=== PATIENT | female | born 1980 | race Caucasian/White ===

== ENCOUNTER 2020-05-20 04:46 | Day surgery (SDC) | payer OTHER ==
[2020-05-19 08:59] VITALS: BMI 27.1
--- OUTSIDE RECORDS SUMMARY | 2020-05-20 04:48 | XMS ---
:1980 Author Organization [facility] Care Team Providers Name Role Phone ERA KHOURY Unavailable Unavailable Re-disclosure Warning The records that you are about to access may contain information from federally- assisted alcohol or drug abuse programs. If such information is present, then the following federally mandated warning applies: This information has been disclosed to you from records protected by federal confidentiality rules (42 CFR part 2). The federal rules prohibit you from making any further disclosure of this information unless further disclosure is expressly permitted by the written consent of the person to whom it pertains or as otherwise permitted by 42 CFR part 2. A general authorization for the release of medical or other information is NOT sufficient for this purpose. The Federal rules restrict any use of the information to criminally investigate or prosecute any alcohol or drug abuse patient.The records that you are about to access may contain highly sensitive health information, the redisclosure of which is protected by Article 27-F of the [facility] Public Health law. If you continue you may haveaccess to information: Regarding HIV / AIDS; Provided by facilities licensed or operated by the [facility] Office of Mental Health; or Provided by the [facility] Office for People With Developmental Disabilities. If such information is present, then the following [facility] mandated warning applies: This information has been disclosed to you from confidential records which are protected by state law. State law prohibits you from making any further disclosure of this information without the specific written consent of the person to whom it pertains, or as otherwise permitted by law. Any unauthorized further disclosure in violation of state law may result in a fine or half-way sentence or both. A general authorization for the release of medical or other information is NOT sufficient authorization for further disclosure. Allergies and Adverse Reactions Type Description Substance Reaction Status Data Source(s ) Food allergy No Known Food No Known Food [facility] [facility] Drug allergy No Known Allergies No Known [facility] Allerg[facility] Drug allergy No Known Drug No Known Drug [facility] Allergies Allerg[facility] Encounters Encounter Providers Location Date Indications Data Source(s ) Emergency Attender: KHOURY, 05/03/2019 VAGINAL PAIN [facility] DIAZINAdmitter: 08:54:00 PM [facility] re ERA KHOURY [facility] VAGINAL PAIN Insurance Providers Payer name Policy type Policy ID Covered Covered republican's Policy P daniel / Coverage republican ID relationship to [employer] Inf ormation type [employer]omeli MVP ESSENTIAL [id number] SP [id number] PLAN 3 4 Problems, Conditions, and Diagnoses Code Display Name Description Problem Type Effective Data Sour ce(s) Dates Z32.02 Encounter for ENCOUNTER FOR Diagnosis 05/03/2019 [facility] test, TEST, 08:54:00 PM [facility] result negative RESULT NEGATIVE [facility] Z88.8 Allergy status to ALLERGY STATUS TO Diagnosis 05/03/2019 [facility] other drugs, OTH 08:54:00 PM [facility] medicaments and DRUG/MEDS/BIOL [facility] biological SUBST STATUS substances status Z88.1 Allergy status to ALLERGY STATUS TO Diagnosis 05/03/2019 [facility] other antibiotic OTHER ANTIBIOTIC 08:54:00 PM [facility] agents status AGENTS STATUS [facility] Z87.442 Personal history PERSONAL HISTORY Diagnosis 05/03/2019 [facility]ol[facility] of urinary OF URINARY 08:54:00 PM [facility] calculi CALCULI [facility] on B96.20 Unspecified UNSP ESCHERICHIA Diagnosis 05/03/2019 [facility] Escherichia coli COLI THE CAUSE 08:54:00 PM [facility] [E. coli] as the OF DISEASES [facility] cause of diseases CLASSD ELSWHR classified elsewhere K76.0 Fatty (change of) FATTY (CHANGE OF) Diagnosis 05/03/2019 [facility] liver, not LIVER, NOT 08:54:00 PM [facility] elsewhere ELSEWHERE [facility] on classified CLASSIFIED N39.0 Urinary tract URINARY TRACT Diagnosis 05/03/2019 [facility] infection, site INFECTION, SITE 08:54:00 PM [facility] not specified NOT SPECIFIED [facility] R30.0 Dysuria DYSURIA Diagnosis 05/03/2019 [facility] 08:54:00 [facility] on Results ID Date Data Source [id number] 05/15/2020 01:50:00 PM EDT [facility] Name Value Range Interpretation Description Data Sup porting Code Source(s) Document(s ) SARS [facility] coronavirus 2 RNA This lab was ordered by [facility] and reported by [facility]. ID Date Data Source [id number] 05/07/2020 06:17:00 PM EDT [facility] Name Value Range Interpretation Description Data Sup porting Code Source(s) Document(s ) SARS [facility] coronavirus 2 RNA This lab was ordered by [facility] and reported by [facility]. Procedure
--- NOTE | 2020-05-20 10:32 | HP ---
History & Physical Update - History History: No Change - Physical Physical: No Change - Assessment Assessment: No Change - Plan Plan: No Change
--- NOTE | 2020-05-20 10:34 | OP ---
Operative Note - Note: Pre-Operative Diagnosis: GUANACO, cystocele Operation: suburethral sling and cystocele repair Findings: GUANACO and cystocele Implants: altis sling Post-Operative Diagnosis: Same as Pre-op Surgeon: Victorino Rubalcava Anesthesiologist/ALMOND PASTE MOLDER: Garrett Quiroz Anesthesia: General, Local Specimens Removed: portion of anterior vaginal wall Estimated Blood Loss (mls): 100 Drains & Tubes with Location: [address] Operative Report Dictated: Yes
[2020-05-20] MEDS ORDERED: VASOPRESSIN 20 UNITS/ML VIAL IV ONE (11:10)
[2020-05-20] MEDS ORDERED: MIDAZOLAM HCL 2 MG/2 ML SINGLE DOSE VIAL ONE (12:35)
[2020-05-20] MEDS ORDERED: PROPOFOL 20 ML ONE (12:35)
[2020-05-20] MEDS ORDERED: DEXAMETHASONE SOD PHOSPHATE 4 MG/1 ML VIAL ONE (12:35)
[2020-05-20] MEDS ORDERED: LIDOCAINE HCL/PF 2% SDV 5ML VIAL ONE (12:35)
[2020-05-20] MEDS ORDERED: ceFAZolin SODIUM 1 GM VIAL IVPB ONE (13:20)
[2020-05-20] MEDS ORDERED: ceFAZolin SODIUM 1 GM VIAL ONE (13:23)
[2020-05-20] MEDS ORDERED: LIDOCAINE 1%/EPI 1:100000 (50 ML MULTI DOSE VIAL) ONE (13:24)
[2020-05-20] MEDS ORDERED: LIDOCAINE 1%/EPI 1:100000 (20 ML MULTI DOSE VIAL) IJ ONE ×2 (13:31)
[2020-05-20] MEDS ORDERED: BACITRACIN 50,000 UNITS VIAL NR ONE (13:45)
[2020-05-20] MEDS ORDERED: BACITRACIN 15 GM TUBE TOPICAL OINTMENT ONE (13:47)
[2020-05-20] MEDS ORDERED: oxyCODONE HCL 5 MG TABLET PO PRN ×2 (15:46→20:30)
[2020-05-20] MEDS ORDERED: ONDANSETRON 4 MG/2 ML VIAL IVPUSH PRN (15:46)
[2020-05-20] MEDS ORDERED: oxyCODONE HCL 5 MG TABLET PO ONE (15:50)
[2020-05-20] MEDS ORDERED: oxyCODONE HCL 5 MG TABLET ONE ×2 (15:53→18:36)
[2020-05-20] MEDS: oxyCODONE HCL 5 MG TABLET PO PRN ×2 (15:55→18:45)
[2020-05-20] MEDS ORDERED: LACTATED RINGERS SOLUTION 1,000 ML IV SCH (16:00)
[2020-05-20] MEDS ORDERED: ACETAMINOPHEN 325 MG TABLET (FP) PO PRN (20:30)
[2020-05-21] MEDS: oxyCODONE HCL 5 MG TABLET PO PRN (04:21)
[2020-05-21 05:51] VITALS: BP 98/47; PULSE 57; TEMP 97.8
--- NOTE | 2020-05-22 19:10 | OP ---
DATE OF OPERATION: 05/20/2020 PREOPERATIVE DIAGNOSES: Mixed urinary incontinence and cystocele. POSTOPERATIVE DIAGNOSES: Mixed urinary incontinence and cystocele. PROCEDURE: Suburethral sling and cystocele repair. SURGEON: Victorino Miranda MD OTOLARYNGOLOGIST: None. ANESTHESIA: General via laryngeal mask. ANESTHESIOLOGIST: Garrett Quiroz MD SPECIMENS: Portion of anterior vaginal wall. CULTURES: None. DRAINS: A 16-Welsh Guerin catheter and vaginal packing. ESTIMATED BLOOD LOSS: 100 mL. COMPLICATIONS: None. DESCRIPTION OF PROCEDURE: Patient was brought to the operating room, placed on the operating table in supine position. After the administration of general anesthesia via laryngeal mask, intravenous antibiotics were administered. Sequential compression devices were placed. Patient was placed in the dorsal lithotomy position, and the vagina, perineum, buttocks, lower abdomen were prepped and draped in usual sterile manner. A 16-Welsh Guerin catheter was placed per urethra into the bladder, 10 mL placed in the balloon. Bladder was emptied. Weighted speculum was placed within the vagina. Approximately 20 mL of a 1:1 mixture of lidocaine with epinephrine 1:200,000 with normal saline half and half was injected into the anterior vaginal wall overlying the mid-urethra and carried down towards the cervix, overlying the cystocele, directed laterally as well. Hydrodissection was done. Now, an anterior vaginal wall midline incision was made overlying the mid-urethra, palpating the Guerin catheter balloon at the bladder neck. This was carried down past the bladder neck, down to the cystocele. Flaps were raised on each side using sharp and blunt dissection in the plane of the pubocervical fascia. This was dissected laterally towards the descending ramus and pubic bone on each side without passing through the endopelvic fascia. Now, using the helical needle, the Altace sling was placed through the left obturator foramen first, then through the right, and then, the tension, a suture was placed on the appropriate tension, and the tensioning suture was cut. A right angle clamp was able to go beneath the sling and the urethra. Now, several sutures of 0 Vicryl were placed to repair the cystocele with [place] tissue. Once the cystocele was repaired, the redundant anterior vaginal wall tissue was excised, sent to Pathology as specimen. Hemostasis was assured. The wound was irrigated with antibiotic solution. The wound was then closed in a running manner with 3-0 Vicryl suture. The vagina was packed with a betadine and bacitracin soaked Kerlix. Guerin catheter at the end of the case was draining clear yellow urine. She tolerated the procedure well, transferred to Recovery in stable condition. VICTORINO MIRANDA M.D. [id number]
--- NOTE | 2020-05-25 18:10 | PATH ---
Surgical Pathology Report Patient Name: KELSI VÁZQUEZ [facility]. Rec. #: [id number] /Age/Gender: 1980 (Age: 40) / F Account: [id number] Location: AMBULATORY SURG Taken: 05/20/2020 Received: 05/20/2020 Reported: 05/25/2020 Physicians: Victorino Rubalcava M.D. Specimen(s) Received PORTION OF ANTERIOR VAGINAL WALL Clinical History Mixed incontinence Final Diagnosis PORTION OF ANTERIOR VAGINAL WALL, CYSTOCELE REPAIR: VAGINAL SQUAMOUS MUCOSA WITH PATCHY MILD ACUTE AND CHRONIC INFLAMMATION, SPONGIOSIS, AND FOCAL PARAKERATOSIS. Electronically Signed Kelsi Garces M.D. Gross Description Received in formalin labeled "portion of anterior vaginal wall," is a 2.4 x 0.9 x 0.4 cm lay delaney, irregular, unoriented portion of soft tissue, consistent with a portion of vaginal wall. Weed Burner sections are submitted in one cassette. /05/24/2020 saudi/05/24/2020
== END 2020-05-21 10:25 | disposition home or self-care (01) ==
LOC: JASU-SURG 04:46 → JASUSAT 04:46 → J6S 19:54 → JASUSAT 05-21 10:25
PROVIDERS: ATTEND Urology
PROC: 0JQC0ZZ Repair Pelvic Region Subcutaneous Tissue and Fascia, Open Approach (ICD-10-PCS; principal; 2020-05-20 13:00)
PROC: 0TSD0ZZ Reposition Urethra, Open Approach (ICD-10-PCS; 2020-05-20 13:00)
DX: N39.46 Mixed incontinence (principal); N81.10 Cystocele, unspecified
CPT/HCPCS: 57240; 57288; C1771; 81025; 88302-TC; 94760

== ENCOUNTER 2020-05-27 14:59 | Emergency (ER) | payer OTHER ==
[2020-05-27 15:27] VITALS: BP 99/53; PULSE 61; TEMP 98.8; BMI 28.9
--- NOTE | 2020-05-27 16:15 | PDOC ---
Attending Attestation - Resident Resident Name: Diogo Cannon - ED Attending Attestation I have performed the following: I have examined & evaluated the patient, The case was reviewed & discussed with the resident, I agree w/resident's findings & plan, Exceptions are as noted - HPI HPI: 05/27/20 16:16 40 F with h/o suburethral sling and cystocele repair 1 week ago presenting to ED with lower abdominal pain. Pt states that she has had pain since the procedure, but it acutely worsened over the past day. She also notes a small amount of bleeding. Today, pt also notes that she feels "a piece of cloth" inside of her vagina when she wipes. Denies fevers but endorses chills. - Physicial Exam PE: 05/27/20 16:27 see resident exam - Medical Decision Making 05/27/20 16:27 40 F with lower abdominal pain s/p suburethral sling 1 week ago. Will evaluate for post-op infection. - Labs - CT pelvis w/ contrast Pt signed out to Dr. Guzman at 4:30pm, pending labs, CT, and re-evaluation Discharge - Discharge Information Problems reviewed: Yes Clinical Impression/Diagnosis: Postoperative pain UTI (urinary tract infection) Qualifiers: Urinary tract infection type: site unspecified Hematuria presence: with hematuria Qualified Code(s): N39.0 - Urinary tract infection, site not specified Condition: Stable Disposition: HOME - Additional Discharge Information Prescriptions: Sulfamethoxazole/Trimethoprim [Bactrim Ds -] 1 tab PO BID 7 Days #14 tablet - Follow up/Referral Referrals: Cielo Noel DO [Primary Care Provider] - - Patient Discharge Instructions Additional Instructions: La vieron en la power de emergencias por dolor plvico, la sensacin de que se estaba saliendo la "ifeanyi" y darby en la vagina y la orina. Hicimos un examen fsico, anlisis de laboratorio y tomografa computarizada de marie pelvis, que mostr que tiene opal infeccin del tracto urinario. No mostr que saliera ninguna ifeanyi, y no vimos que saliera ninguna ifeanyi cuando hicimos un examen plvico. Hablamos con marie cirujano, el Dr. Rubalcava, quien recomend cambiarlo a un antibitico diferente, llamado Bactrim. Tambin quiere verte en marie oficina el lunes, y es importante que hagas un seguimiento con l. Regrese a la power de em ergencias si tiene fiebre, dificultad para respirar, sangrado significativo o cualquier otro sntoma. You were seen in the ER for pelvic pain, the sensation that the "mesh" was coming out, and blood in your vagina and urine. We did a physical exam, labs, and CT scan of your pelvis, which showed that you have a urinary tract infection. It did not show any mesh coming out, and we did not see any mesh coming out when we did a pelvic exam. We spoke with your surgeon, Dr. Rubalcava, who recommended switching you to a different antibiotic, called Bactrim. He also wants to see you in his office on Sunday, and it is important that you follow up with him. Please return to the ER for fever, difficulty breathing, significant bleeding, or any other symptoms. - Post Discharge Activity
--- NOTE | 2020-05-27 16:36 | PDOC ---
History of Present Illness - General Chief Complaint: Pain Stated Complaint: SICK Time Seen by Provider: 05/27/20 15:37 - History of Present Illness Initial Comments: 05/27/20 16:13 40yo F with history of kidney stones who is post-op day 6 from a urethral sling and cystocele repair by Govind Rubalcava presents with lower abdominal/pelvic pain since the surgery but much worse this morning, as well as the sensation that the hard mesh is coming out. States the pain is much worse since this morning, not significantly relieved by her prescribed toradol. Has noticed some blood in her urine and vagina since the surgery, but no significant bleeding. No GI symptoms, no fever. LMP in August with filemaker developer workup for amenorrhea pending later this month. PMH/PSH: as above Meds: augmentin, toradol Allergies Allergy/AdvReac Type Severity Reaction Status Date / Time No Known Drug Allergies Allergy Unverified 05/20/20 13:34 SUN Allergy Itching Uncoded 05/19/20 09:01 ROS GENERAL/CONSTITUTIONAL: No fever or chills. No weakness. HEAD, EYES, EARS, NOSE AND THROAT: No change in vision. No ear pain or disc harge. No sore throat. CARDIOVASCULAR: No chest pain or shortness of breath RESPIRATORY: No cough, wheezing, or hemoptysis. GASTROINTESTINAL: No nausea, vomiting, diarrhea or constipation. GENITOURINARY: hematuria. No dysuria, frequency MUSCULOSKELETAL: No joint or muscle swelling or pain. No neck or back pain. SKIN: No rash NEUROLOGIC: No headache, vertigo, loss of consciousness, or change in strength/sensation. ENDOCRINE: No increased thirst. No abnormal weight change HEMATOLOGIC/LYMPHATIC: No anemia, easy bleeding, or history of blood clots. ALLERGIC/IMMUNOLOGIC: No hives or skin allergy. PE GENERAL: Awake, alert, and fully oriented, in no acute distress HEAD: No signs of trauma, normocephalic, atraumatic EYES: PERRLA, EOMI, sclera anicteric, conjunctiva clear ENT: Auricles normal inspection, hearing grossly normal, nares patent, oropharynx clear without exudates. Moist mucosa NECK: Normal ROM, supple, no lymphadenopathy, JVD, or masses LUNGS: No distress, speaks full sentences, clear to auscultation bilaterally HEART: Regular rate and rhythm, normal S1 and S2, no murmurs, rubs or gallops, peripheral pulses normal and equal bilaterally. ABDOMEN: Soft, diffuse tenderness, worse in the lower abdomen, no rebound tenderness EXTREMITIES : Normal inspection, Normal range of motion, no edema. No clubbing or cyanosis. NEUROLOGICAL: Cranial nerves II through XII grossly intact. Normal speech, normal gait, no focal sensorimotor deficits SKIN: Warm, Dry, normal turgor, no rashes or lesions noted Pelvic: small amount of blood in the vault. Suture line on anterior vaginal wall with granualtion tissue. No mesh visualized. No abdnormal discharge. MDM 40yo F with history of kidney stones who is post-op day 6 from a urethral sling and cystocele repair by Govind Rubalcava presents with lower abdominal/pelvic pain since the surgery but much worse this morning, the sensation that the hard mesh is coming out, and hematuria / blood in vagina. Exam notable for lower abdominal tenderness and scant blood in the vaginal vault and a surgical suture line without mesh visualized. Spoke with urologist Dr. Rubalcava who recommended pelvic exam to determine if there is significant bleeding or displaced mesh. If normal, can f/u in clinic sunday. Given significant tenderness, will get Pelvic CT with contrast to evaluate for post-op infection or other complication. DDx also includes UTI, ovarian cyst. -CBC, CMP, UA/UC -CT pelvis with IV contrast 05/27/20 21:43 Labs indicate UTI. Laboratory Results - last 24 hr 05/27/20 05/27/20 05/27/20 16:50 16:50 16:50 WBC 7.2 RBC 4.30 Hgb 12.6 Hct 37.5 MCV 87.2 MCH 29.3 MCHC 33.6 RDW 14.5 Plt Count 251 MPV 9.0 Absolute Neuts (auto) 4.0 Neutrophils % 55.5 Lymphocytes % 35.1 Monocytes % 5.6 Eosinophils % 3.2 Basophils % 0.6 Nucleated RBC % 0 Sodium 140 Potassium 4.1 Chloride 107 Carbon Dioxide 28 Anion Gap 6 L BUN 14.6 Creatinine 0.6 Est GFR (CKD-EPI)AfAm 134.01 Est GFR (CKD-EPI)NonAf 115.63 Random Glucose 90 Calcium 9.0 Total Bilirubin 0.4 AST 56 H ALT 98 H Alkaline Phosphatase 103 Total Protein 7.4 Albumin 3.7 Serum , Qual Negative Urine Color Urine Appearance Urine pH Ur Specific [place] Urine Protein Urine Glucose (UA) Urine Ketones Urine Blood Urine Nitrite Urine Bilirubin Urine Urobilinogen Ur Leukocyte Esterase Urine WBC (Auto) Urine RBC (Auto) Urine Casts (Auto) U Epithel Cells (Auto) U Sm Round Cell (Auto) Urine Bacteria (Auto) 05/27/20 17:00 WBC RBC Hgb Hct MCV MCH MCHC RDW Plt Count MPV Absolute Neuts (auto) Neutrophils % Lymphocytes % Monocytes % Eosinophils % Basophils % Nucleated RBC % Sodium Potassium Chloride Carbon Dioxide Anion Gap BUN Creatinine Est GFR (CKD-EPI)AfAm Est GFR (CKD-EPI)NonAf Random Glucose Calcium Total Bilirubin AST ALT Alkaline Phosphatase Total Protein Albumin Serum , Qual Urine Color Yellow Urine Appearance Clear Urine pH 5.5 Ur Specific [place] 1.016 Urine Protein Negative Urine Glucose (UA) Negative Urine Ketones Negative Urine Blood 3+ H Urine Nitrite Negative Urine Bilirubin Negative Urine Urobilinogen 0.2 Ur Leukocyte Esterase 2+ H Urine WBC (Auto) 66 Urine RBC (Auto) 291 Urine Casts (Auto) 3 U Epithel Cells (Auto) >36 U Sm Round Cell (Auto) Moderate Urine Bacteria (Auto) [address]: An approximately 2.7 x 1.7 x 1.3 cm subtle semilunar shaped fluid structure is noted posterior to the urethra which could be on a postsurgical basis and/or representing a urethral diverticulum. An abscess is probably very unlikely. Correlate clinically There is no definite associated mass effect. Correlate with the results of prior imaging studies presumably available from a different facility. No hematoma or extraluminal air is seen. The urinary bladder demonstrates no definite intrinsic or extrinsic CT abnormality. There is no evidence of free intraperitoneal fluid. No lymphadenopathy is noted on the basis of CT size criteria. There is no obvious CT evidence of uterine or adnexal pathology. The appendix appears unremarkable. The partially imaged large and small bowel demonstrate no gross noncontrast abnormality. No obvious acute osseous pathology is seen. Impression: A subtle semilunar shaped approximately 2.7 x 1.7 x 1.3 cm fluid structure is noted abutting the posterior half of the urethra which may be postsurgical in nature and/or representing a urethral diverticulum as described above. Correlate clinically and with the results of previous imaging studies. 05/27/20 21:[address] Rubalcava who recommended switching to Bactrim and having her follow up in clinic on Sunday. He stated the questionable abnormality on CT is a normal post-op finding. DC home on Bactrim for 7 days Past History - Medical History Allergies/Adverse Reactions: Allergies Allergy/AdvReac Type Severity Reaction Status Date / Time No Known Drug Allergies Allergy Unverified 05/20/20 13:34 SUN Allergy Itching Uncoded 05/19/20 09:01 Home Medications: Ambulatory Orders Sulfamethoxazole/Trimethoprim [Bactrim Ds -] 1 tab PO BID 7 Days #14 tablet 05/27/20 COPD: No Liver Disease: Yes (LIVER INFLAMMATION) - Reproductive History Is Patient Now?: No - Psycho-Social/Smoking History Smoking History: Never smoked - Substance Abuse Hx (Audit-C & DAST Scrn) How often the patient has a drink containing alcohol: Never Score: In Men: 4 or > Positive; In Women: 3 or > Positive: 0 Screen Result (Pos requires Nsg. Audit-10AR): Negative In the last yr the pt used illegal drug/Rx for NonMed reason: No Score: Yes response is considered Positive: 0 Screen Result (Positive result requires Nsg. DAST-10): Negative *Physical Exam - Vital Signs Last Vital Signs Temp Pulse Resp BP Pulse Ox 98.8 F 61 19 99/53 L 98 05/27/20 15:24 05/27/20 15:24 05/27/20 15:24 05/27/20 15:24 05/27/20 15:24 ED Treatment Course - LABORATORY CBC & Chemistry Diagram: 05/27/20 16:50 05/27/20 16:50 Discharge - Discharge Information Problems reviewed: Yes Clinical Impression/Diagnosis: Postoperative pain UTI (urinary tract infection) Qualifiers: Urinary tract infection type: site unspecified Hematuria presence: with hematuria Qualified Code(s): N39.0 - Urinary tract infection, site not specified Condition: Stable Disposition: HOME - Additional Discharge Information Prescriptions: Sulfamethoxazole/Trimethoprim [Bactrim Ds -] 1 tab PO BID 7 Days #14 tablet - Follow up/Referral Referrals: Cielo Noel DO [Primary Care Provider] - - Patient Discharge Instructions Additional Instructions: La vieron en la power de emergencias por dolor plvico, la sensacin de que se estaba saliendo la "ifeanyi" y darby en la vagina y la orina. Hicimos un examen fsico, anlisis de laboratorio y tomografa computarizada de marie pelvis, que mostr que tiene opal infeccin del tracto urinario. No mostr que saliera ninguna ifeanyi, y no vimos que saliera ninguna ifeanyi cuando hicimos un examen p lvico. Hablamos con marie cirujano, el Dr. Rubalcava, quien recomend cambiarlo a un antibitico diferente, llamado Bactrim. Tambin quiere verte en marie oficina el lunes, y es importante que hagas un seguimiento con l. Regrese a la power de emergencias si tiene fiebre, dificultad para respirar, sangrado significativo o cualquier otro sntoma. You were seen in the ER for pelvic pain, the sensation that the "mesh" was coming out, and blood in your vagina and urine. We did a physical exam, labs, and CT scan of your pelvis, which showed that you have a urinary tract infection. It did not show any mesh coming out, and we did not see any mesh coming out when we did a pelvic exam. We spoke with your surgeon, Dr. Rubalcava, who recommended switching you to a different antibiotic, called Bactrim. He also wan ts to see you in his office on Sunday, and it is important that you follow up with him. Please return to the ER for fever, difficulty breathing, significant bleeding, or any other symptoms. - Post Discharge Activity
[2020-05-27] MEDS ORDERED: ACETAMINOPHEN 1000 MG/100 ML VIAL (NON FORMULARY) IVPB ONE (16:39)
[2020-05-27] MEDS ORDERED: ACETAMINOPHEN INJECTION 100 ML IVPB ONE (17:08)
[2020-05-27 17:56] LABS: BASO % 0.6 % (0-2.0); EOS % 3.2 % (0-4.5); HEMATOCRIT 37.5 % (32.4-45.2); HEMOGLOBIN 12.6 GM/dL (10.7-15.3); LYMPH % 35.1 % (8-40); MCH 29.3 pg (25.7-33.7); MCHC 33.6 g/dl (32.0-36.0); MEAN CELL VOLUME 87.2 fl (80-96); MONO % 5.6 % (3.8-10.2); NEUT % 55.5 % (42.8-82.8); PLATELET COUNT 251 K/MM3 (134-434); RDW 14.5 % (11.6-15.6); WHITE BLOOD COUNT 7.2 K/mm3 (4.0-10.0)
[2020-05-27 18:19] LABS: ALBUMIN 3.7 g/dl (3.4-5.0); BILIRUBIN,TOTAL 0.4 mg/dL (0.2-1); BLOOD UREA NITROGEN 14.6 mg/dL (7-18); CREATININE 0.6 mg/dL (0.55-1.3); POTASSIUM 4.1 mmol/L (3.5-5.1); TOT PROT 7.4 g/dl (6.4-8.2)
[2020-05-27 18:27] LABS: EPI CELLS >36 /uL (0-25.1); HYALINE CASTS 3 /uL (0-3.1); PH,URINE 5.5 (5.0-8.0); URINE APPEARANCE CLEAR; URINE BACTERIA 96 /uL (0-1359); URINE BILIRUBIN NEGATIVE (NEGATIVE); URINE COLOR YELLOW; URINE GLUCOSE (UA) NEGATIVE (NEGATIVE); URINE KETONE NEGATIVE (NEGATIVE); URINE LEUK ESTERASE 2+ (NEGATIVE); URINE NITRITE NEGATIVE (NEGATIVE); URINE PROTEIN NEGATIVE (NEGATIVE); URINE RBC 291 /uL (0-23.9); URINE UROBILINOGEN 0.2 mg/dL (0.2-1.0); URINE WBC 66 /uL (0-25.8)
== END 2020-05-27 19:23 | disposition home or self-care (01) ==
LOC: JER 14:59
PROC: 3E0333Z Introduction of Anti-inflammatory into Peripheral Vein, Percutaneous Approach (ICD-10-PCS; principal; 2020-05-27)
DX: G89.18 Other acute postprocedural pain (principal); N39.0 Urinary tract infection, site not specified
CPT/HCPCS: 36415; 72193-TC; 80053; 81003; 84703; 85025; 87086; 99285-25; J0131; Q9967

== ENCOUNTER 2022-03-15 13:29 | Emergency (ER) | payer OTHER ==
[2022-03-15 14:24] VITALS: BP 116/88; PULSE 69; TEMP 98.1; BMI 28.3
[2022-03-15] MEDS ORDERED: CEPHALEXIN MONOHYDRATE 500 MG CAPSULE (UD) PO ONE (14:30)
[2022-03-15] MEDS ORDERED: diphenhydrAMINE HCL 25 MG CAPSULE (FP) PO ONE ×2 (14:30→14:35)
[2022-03-15] MEDS ORDERED: CEPHALEXIN MONOHYDRATE 500 MG CAPSULE (UD) ONE (14:36)
== END 2022-03-15 14:42 | disposition home or self-care (01) ==
LOC: FER 13:29
DX: T63.441A Toxic effect of venom of bees, accidental (unintentional), initial encounter (principal)
CPT/HCPCS: 99283-25